=== PATIENT | female | born 1980 | race Caucasian/White ===

== ENCOUNTER 2017-10-26 06:39 | Emergency (ER) | payer OTHER, BC ==
[~2017-10-26] VITALS: Ht 165.1 cm; Wt 72.6 kg
[2017-10-26] MEDS ORDERED: ACETAMINOPHEN500 MG PO (06:53)
== END 2017-10-26 07:45 | disposition home or self-care (01) ==
LOC: ED 06:39
PROC: 3E0T3BZ Introduction of Anesthetic Agent into Peripheral Nerves and Plexi, Percutaneous Approach (ICD-10-PCS; principal; 2017-10-26)
DX: S61.233A Puncture wound without foreign body of left middle finger without damage to nail, initial encounter (principal); F17.200 Nicotine dependence, unspecified, uncomplicated; W26.0XXA Contact with knife, initial encounter
CPT/HCPCS: 64450; 90471; 90715; 99283